=== PATIENT | male | born 1945 | race Caucasian/White ===

== ENCOUNTER → 2020-10-08 12:00 | Outpatient (CLI) | payer MEDICARE, SELFPAY ==
[2020-10-08] MEDS: COVID-19 VACC, Ad26(JANSSEN)/PF 0.5 ML IM (12:08)
== END ==
PROVIDERS: Visit Provider Internal Medicine
DX: Z23 Encounter for immunization (principal)
CPT/HCPCS: 0031A; 91303

== ENCOUNTER → 2021-05-21 11:33 | Outpatient (CLI) | payer MEDICARE, SELFPAY ==
[2021-05-21] MEDS: COVID-19 VACC #3, MRNA(MOD) 50 MCG/0.25 ML VIAL IM (11:44)
== END ==
PROVIDERS: Visit Provider Internal Medicine
DX: Z23 Encounter for immunization (principal)
CPT/HCPCS: 0013A; 91301